=== PATIENT | female | born 1980 | race Caucasian/White ===

== ENCOUNTER 2022-09-12 23:17 | Emergency (ER) | payer MEDICAID ==
[2022-09-13] MEDS ORDERED: Clindamycin HCl 150 MG Cap PO STA (00:14)
[2022-09-13 00:50] VITALS: BP 153/104; PULSE 118
== END 2022-09-13 00:20 | disposition home or self-care (01) ==
LOC: FB.ED 23:17
DX: K04.7 Periapical abscess without sinus (principal); K02.9 Dental caries, unspecified
CPT/HCPCS: 99283; 99284; A9270

== ENCOUNTER 2022-12-09 00:09 | Emergency (ER) | payer MEDICAID ==
[2022-12-09] MEDS ORDERED: Cephalexin 500 MG Cap PO ONE (00:10)
[2022-12-09] MEDS ORDERED: traMADol 50 MG Tab PO ONE (00:10)
[2022-12-09 00:45] VITALS: BP 151/102; PULSE 89
== END 2022-12-09 00:50 | disposition home or self-care (01) ==
LOC: FB.ED 00:09
DX: K04.7 Periapical abscess without sinus (principal); Z79.899 Other long term (current) drug therapy
CPT/HCPCS: 99282; A9270

== ENCOUNTER 2023-02-25 13:28 | Emergency (ER) | payer BC, MEDICAID ==
[2023-02-25 14:28] LABS: BLOOD UREA NITROGEN,BUN 17 mg/dL (7-18); BUN/CREATININE RATIO 12.1 (9-20); CALCIUM 9.3 mg/dL (8.6-10.2); CARBON DIOXIDE,CO2 25 mmol/L (21-32); CHLORIDE,CL 98 mmol/L (100-110); CREATININE 1.4 mg/dL (0.55-1.02); EST CRCL DRUG DOSING (CG) 44.19 mL/min; ESTIMATED GFR 49 mL/min (>60); GLUCOSE RANDOM 131 mg/dL (80-116); SODIUM,NA 134 mmol/L (135-145)
[2023-02-25 14:29] LABS: BASOPHILS ABSOLUTE AUTO 0.1 x10-3/uL (0.0-0.1); BASOPHILS PERCENT AUTO 0.9 % (0.2-1.5); EOSINOPHILS ABSOLUTE AUTO 0.1 x10-3/uL (0.0-0.8); EOSINOPHILS PERCENT AUTO 0.8 % (0.6-8.1); HEMATOCRIT 47.7 % (34.2-48.2); HEMOGLOBIN 16.5 g/dL (11.4-15.5); LYMPHOCYTES ABSOLUTE AUTO 2.5 x10-3/uL (1.0-4.4); LYMPHOCYTES PERCENT AUTO 24.5 % (18.4-52.1); MEAN CORPUSCULAR HEMOGLOBIN 32.1 pg (23.9-33.9); MEAN CORPUSCULAR HGB CONC 34.6 g/dL (31.9-34.8); MEAN CORPUSCULAR VOLUME 92.8 fL (76.7-100.5); MEAN PLATELET VOLUME 7.1 fL (7.1-12.4); MONOCYTES PERCENT AUTO 9.8 % (4.4-15.7); NEUTROPHILS ABSOLUTE AUTO 6.7 x10-3/uL (1.5-6.3); PLATELET COUNT,PLT 453 x10(3)uL (151-488); RED BLOOD CELL COUNT 5.14 x10(6)uL (3.60-5.20); RED CELL DISTRIBUTION WIDTH 13.6 % (12.3-16.5); WHITE BLOOD CELL COUNT,WBC 10.4 x10-3/uL (3.0-10.3)
[2023-02-25 14:33] LABS: ALANINE AMINOTRANSFERASE,ALT 32 U/L (12-36); ALBUMIN 3.9 g/dL (3.5-5.2); ALKALINE PHOSPHATASE 105 IU/L (56-112); ASPARTATE AMNIOTRANSFERASE,AST 23 IU/L (5-25); BILIRUBIN TOTAL 0.3 mg/dL (0.1-1.3)
[2023-02-25 14:38] LABS: LACTIC ACID 1.5 mmol/L (0.4-2.0)
[2023-02-25 14:43] LABS: BILIRUBIN,URINE NEGATIVE (NEGATIVE); GLUCOSE,URINE 100 mg/dL (NORMAL); KETONES,URINE NEGATIVE (NEGATIVE); LEUKOCYTE ESTERASE,URINE NEGATIVE (NEGATIVE); NITRITE,URINE NEGATIVE (NEGATIVE); OCCULT BLOOD,URINE MODERATE (NEGATIVE); PROTEIN,URINE NEGATIVE (NEGATIVE); UROBILINOGEN,URINE NORMAL (NEGATIVE)
[2023-02-25 14:50] LABS: APPEARANCE,URINE SLIGHTLY CLOUDY (CLEAR); BACTERIA,URINE MODERATE (NS); COLOR,URINE YELLOW (YELLOW); RBC,URINE 0-5 (0-5); SQUAMOUS EPITHELIAL CELLS,UR MANY (NS,R,O); WBC,URINE 0-5 (0-5)
[2023-02-25] MEDS: Sodium Chloride 0.9% 1,000 ML IV SCH (15:45)
[2023-02-25 21:08] VITALS: BP 119/81; PULSE 111
== END 2023-02-25 17:00 | disposition home or self-care (01) ==
LOC: FB.ED 13:28
DX: E87.1 Hypo-osmolality and hyponatremia (principal); E86.0 Dehydration; K04.7 Periapical abscess without sinus; Z79.899 Other long term (current) drug therapy
CPT/HCPCS: 36415; 80053; 81001; 81025; 83605; 83880; 84443; 84484; 85025; 85379; 93005; 96360; 99283-25; J7030

== ENCOUNTER 2023-10-13 20:46 | Emergency (ER) | payer MEDICAID ==
[2023-10-13 21:00] VITALS: BP 153/110; PULSE 130
== END 2023-10-13 21:15 | disposition home or self-care (01) ==
LOC: FB.ED 20:46
DX: F41.0 Panic disorder [episodic paroxysmal anxiety] (principal); I10 Essential (primary) hypertension; F17.210 Nicotine dependence, cigarettes, uncomplicated; Z79.899 Other long term (current) drug therapy
CPT/HCPCS: 99283

== ENCOUNTER 2024-02-01 00:15 | Emergency (ER) | payer BC, MEDICAID, OTHER ==
[2024-02-01] MEDS ORDERED: Penicillin V Potassium 250 MG Tab PO ONE (00:16)
[2024-02-01 00:28] VITALS: BP 157/107; PULSE 102
== END 2024-02-01 00:34 | disposition home or self-care (01) ==
LOC: FB.ED 00:15
DX: K04.7 Periapical abscess without sinus (principal); I10 Essential (primary) hypertension; Z79.899 Other long term (current) drug therapy
CPT/HCPCS: 99283; A9270

== ENCOUNTER 2024-03-09 18:53 | Emergency (ER) | payer BC, MEDICAID ==
[2024-03-09] MEDS: Diphtheria/Tetanus Toxoids,Adult (Td) 0.5 ML SDV IM ONE (19:51)
[2024-03-09 22:31] VITALS: BP 126/89; PULSE 89
== END 2024-03-09 19:53 | disposition home or self-care (01) ==
LOC: FB.ED 18:53
DX: S60.451A Superficial foreign body of left index finger, initial encounter (principal); I10 Essential (primary) hypertension; Z23 Encounter for immunization; Z79.899 Other long term (current) drug therapy; W45.8XXA Other foreign body or object entering through skin, initial encounter
CPT/HCPCS: 90471; 90714; 99283-25

== ENCOUNTER 2024-05-20 21:19 | Emergency (ER) | payer MEDICAID ==
[2024-05-20 23:08] VITALS: BP 146/92; PULSE 105
== END 2024-05-20 22:55 | disposition home or self-care (01) ==
LOC: FB.ED 21:19
DX: J06.9 Acute upper respiratory infection, unspecified (principal); I10 Essential (primary) hypertension; F17.210 Nicotine dependence, cigarettes, uncomplicated; Z79.2 Long term (current) use of antibiotics; Z79.899 Other long term (current) drug therapy
CPT/HCPCS: 71045; 87651-QW; 99283

== ENCOUNTER 2025-01-03 20:57 | Emergency (ER) | payer MEDICAID ==
[2025-01-03 21:27] VITALS: BP 150/109; PULSE 99
[2025-01-03] MEDS: Lidocaine 2% Viscous Solution 15 ML UD PO ONE (21:38)
[2025-01-03] MEDS: Doxycycline 100 MG Tab PO ONE (21:38)
[2025-01-03] MEDS: metroNIDAZOLE 500 MG Tab PO ONE (21:39)
== END 2025-01-03 21:47 | disposition home or self-care (01) ==
LOC: FB.ED 20:57
DX: K04.7 Periapical abscess without sinus (principal); I10 Essential (primary) hypertension; Z79.899 Other long term (current) drug therapy
CPT/HCPCS: 99283; A9270-GY

== ENCOUNTER 2025-01-04 15:58 | Emergency (ER) | payer MEDICAID ==
[2025-01-04 16:45] LABS: BASOPHILS ABSOLUTE AUTO 0.1 x10-3/uL (0.0-0.1); BASOPHILS PERCENT AUTO 0.8 % (0.2-1.5); EOSINOPHILS ABSOLUTE AUTO 0.1 x10-3/uL (0.0-0.8); EOSINOPHILS PERCENT AUTO 0.7 % (0.6-8.1); HEMATOCRIT 47.7 % (34.2-48.2); HEMOGLOBIN 16.6 g/dL (11.4-15.5); LYMPHOCYTES ABSOLUTE AUTO 2.6 x10-3/uL (1.0-4.4); MEAN CORPUSCULAR HEMOGLOBIN 32.4 pg (23.9-33.9); MEAN CORPUSCULAR HGB CONC 34.9 g/dL (31.9-34.8); MEAN CORPUSCULAR VOLUME 92.9 fL (76.7-100.5); MEAN PLATELET VOLUME 6.9 fL (7.1-12.4); MONOCYTES ABSOLUTE AUTO 1.1 x10-3/uL (0.3-1.0); MONOCYTES PERCENT AUTO 9.5 % (4.4-15.7); PLATELET COUNT,PLT 417 x10(3)uL (151-488); RED BLOOD CELL COUNT 5.13 x10(6)uL (3.60-5.20); RED CELL DISTRIBUTION WIDTH 12.6 % (12.3-16.5); WHITE BLOOD CELL COUNT,WBC 11.9 x10-3/uL (3.0-10.3)
[2025-01-04 16:52] LABS: BLOOD UREA NITROGEN,BUN 15 mg/dL (7-18); BUN/CREATININE RATIO 12.5 (9-20); CALCIUM 9.7 mg/dL (8.6-10.2); CARBON DIOXIDE,CO2 27 mmol/L (21-32); CHLORIDE,CL 101 mmol/L (100-110); CREATININE 1.2 mg/dL (0.55-1.02); ESTIMATED GFR 58 mL/min (>60); GLUCOSE RANDOM 133 mg/dL (80-116); POTASSIUM,K 3.2 mmol/L (3.5-5.3); SODIUM,NA 136 mmol/L (135-145)
[2025-01-04] MEDS: VANCOmycin 1 GM/200 ML 1 GM in Premix Bag 1 BAG IV ONE (16:54)
[2025-01-04 16:57] LABS: ALANINE AMINOTRANSFERASE,ALT 47 U/L (12-36); ALBUMIN 3.8 g/dL (3.5-5.2); ALKALINE PHOSPHATASE 105 IU/L (56-112); ASPARTATE AMNIOTRANSFERASE,AST 22 IU/L (5-25); BILIRUBIN TOTAL 0.3 mg/dL (0.1-1.3); PROTEIN TOTAL,TP 7.7 g/dL (6.0-8.0)
[2025-01-04] MEDS: Potassium Chloride 20 MEQ Tab.ER PO ONE (18:27)
[2025-01-04] MEDS: Ampicillin/Sulbactam Na 3 GM in Sodium Chloride 0.9% 100 ML IV ONE (18:57)
[2025-01-04 19:36] VITALS: BP 124/92; PULSE 102
== END 2025-01-04 19:37 | disposition home or self-care (01) ==
LOC: FB.ED 15:58
DX: K04.7 Periapical abscess without sinus (principal); I10 Essential (primary) hypertension; Z79.899 Other long term (current) drug therapy
CPT/HCPCS: 36415; 80053; 85025; 86140; 96365; 96367; 99283; A9270; J0295; J3372